=== PATIENT | female | born 2000 | race Hispanic/Latino ===

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

== ENCOUNTER 2020-02-25 08:15 | Emergency (ER) | payer OTHER ==
[2020-02-25] MEDS ORDERED: Acetaminophen 325 MG TAB ONE (08:44)
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
== END 2020-02-25 10:07 | disposition home or self-care (01) ==
LOC: ERS 08:15
DX: S21.251A Open bite of right back wall of thorax without penetration into thoracic cavity, initial encounter (principal); S41.152A Open bite of left upper arm, initial encounter; S41.151A Open bite of right upper arm, initial encounter; S00.03XA Contusion of scalp, initial encounter; S00.83XA Contusion of other part of head, initial encounter; S40.012A Contusion of left shoulder, initial encounter; S60.221A Contusion of right hand, initial encounter; S00.212A Abrasion of left eyelid and periocular area, initial encounter; F90.9 Attention-deficit hyperactivity disorder, unspecified type; Y04.8XXA Assault by other bodily force, initial encounter; Y04.1XXA Assault by human bite, initial encounter
CPT/HCPCS: 70450; 70486